=== PATIENT | female | born 1955 | race African-American/Black ===

== ENCOUNTER → 2017-08-21 | Outpatient (CLI) | payer OTHER ==
--- NOTE | 2017-08-23 00:02 | MR ---
EXAMINATION TYPE: MR cspine/tspine wo con DATE OF EXAM: 08/21/2017 COMPARISON: NONE HISTORY: Cervicalgia / Pain in thoracic spine per order. Pain in neck with left arm pain or weakness per patient. Mid back pain since 1988 per patient. TECHNIQUE: Multiplanar, multisequence imaging of cervical and thoracic spine are performed without co ntrast FINDINGS: C-SPINE: FINDINGS: Sagittal images of the cervical spine show the craniocervical junction to appear within nor mal limits. The cervical and upper thoracic spinal cord is normal in course, caliber, and signal. V ertebral alignment is anatomic. The vertebral body and intravertebral disk heights are normal. No la rge posterior disc herniations are seen on sagittal images. There is fairly moderate multilevel spurr ing with more severe spurring lower cervical levels noted. The bone marrow signal intensity is within normal limits. Axial images show the C2-C3 and C3-C4 level to appear within normal limits. Axial images at C4-C5 level show focal right paracentral disc protrusion effacing anterolateral theca l sac, bilateral neural foramina are patent on axial image 31. Axial images at C5-C6 level show broad-based posterior disc protrusion minimally effacing anterior th ecal sac, bilateral neural foramina are patent near axial image 23. Axial images at C6-C7 and C7-T1 levels are felt within normal limits. IMPRESSION: Some degenerative changes mid cervical spine as detailed above with moderate to severe mu ltilevel spurring also noted. T-SPINE: Coronal images show satisfactory alignment. There is suggestion of 8 mm right mid lung nodule coronal image 17 confirmed on axial image 16 that warrants follow-up. Spinal cord shows normal course, sharonda raman, and signal as it courses the thoracic spine. Vertebral body heights and alignment are satisfact ory. There are multilevel small Schmorl nodes in the mid to lower thoracic spine. Disc space heights are maintained. There are posterior disc herniation effaces the anterior thecal sac T5-T6 level and T 10-T11 level on sagittal image 7. Mild multilevel anterior spurring is seen. Bone marrow signal inten sity is maintained. Review of the axial images shows paracentral disc protrusions mildly effacing anterolateral thecal sa c at T1-T2 and T2-T3 level. There is confirmation of central disc protrusion effacing anterior thecal sac at and T5-T6 level axial image 6 series 1101. Axial images at T10-T11 level shows central disc p rotrusion effacing anterior thecal sac with fairly moderate bilateral ligamentum flavum hypertrophy e ffacing posterior lateral thecal sac on axial image 8 series 1001. IMPRESSION: Multilevel mild spurring and some multilevel degenerative changes most prominent at T5-T6 and T10-T11 levels as detailed above. Possible 7 mm posterior right mid lung nodule. Follow-up ches t CT is advised to rule out malignancy.
== END | disposition home or self-care (01) ==
LOC: RADMRIMAIN 08:05
PROVIDERS: ATTEND Psychiatry & Neurology Neurology
DX: M51.24 Other intervertebral disc displacement, thoracic region (principal)
CPT/HCPCS: 72141; 72146

== ENCOUNTER → 2017-09-11 | Outpatient (CLI) | payer OTHER ==
--- NOTE | 2017-09-11 14:30 | CT ---
EXAMINATION TYPE: CT chest wo con DATE OF EXAM: 09/11/2017 COMPARISON: NONE HISTORY: Abnormal chest pains CT DLP: 113.50 mGycm, Automated exposure control for dose reduction was used. CONTRAST: None TECHNIQUE: Axial images were obtained at 5 mm thick sections. Reconstructed images are reviewed on [employer] computer in the coronal plane. FINDINGS: Portion of the thyroid visualized is normal. There is a 1.0 cm smooth bordered rounded density mid right lung. Series 4 image 33 No enlarged mediastinal or hilar adenopathy is evident. The ascending aorta diameter at the level o f the main pulmonary artery is 3.1 cm. The main pulmonary artery diameter at the bifurcation is 2.[address] sections are obtained through the upper abdomen. Abdomen is essentially unremarkable. IMPRESSIONS: 1. 1 cm nodular density posterior lateral right peripheral lung. Consider workup with PET CT.
== END | disposition home or self-care (01) ==
LOC: RADCTMAIN 09:40
PROVIDERS: ATTEND Psychiatry & Neurology Neurology
DX: J98.4 Other disorders of lung (principal); R07.89 Other chest pain
CPT/HCPCS: 71250